=== PATIENT | male | born 1990 | race African-American/Black ===

== ENCOUNTER 2018-11-02 12:15 | Emergency (ER) | payer OTHER ==
[2018-11-02 12:34] VITALS: BP 124/72
--- NOTE | 2018-11-02 12:58 | ED ---
Throat Pain/Nasal Congestion - HPI Summary HPI Summary: 28 yr old male with the complaint of left eye irritation for about four days and getting worse with yellow drainage and crusting shut in the am. No history of grinding or recalling any FB inthe eye. No contact lens use. No cold or cough symptoms. 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 - History of Current Complaint Chief Complaint: UCEye Time Seen by Provider: 11/02/18 12:45 - Allergies/Home Medications Allergies/Adverse Reactions: Allergies Allergy/AdvReac Type Severity Reaction Status Date / Time No Known Allergies Allergy Verified 11/02/18 12:29 Home Medications: Home Medications Ibuprofen TAB* [Advil TAB*] 600 mg PO Q6H PRN 11/02/18 [History Confirmed ] PMH/Surg Hx/FS Hx/Imm Hx Infectious Disease History: No Infectious Disease History: Denies: Traveled Outside the [place] in Last 30 Days - Family History Known Family History: Positive: None - Social History Occupation: Employed Full-time Alcohol Use: Weekly Substance Use Type: Reports: None Smoking Status (MU): Never Smoked Tobacco Review of Systems Constitutional: Negative Positive: Drainage, Erythema. Negative: Photophobia, Blurred Vision, Diplopia All Other Systems Reviewed And Are Negative: Yes Physical Exam Triage Information Reviewed: Yes Vital Signs On Initial Exam: Initial Vitals Temp Pulse Resp BP Pulse Ox 98 F 82 14 124/72 100 11/02/18 12:30 11/02/18 12:30 11/02/18 12:30 11/02/18 12:30 11/02/18 12:30 Vital Signs Reviewed: Yes Appearance: Positive: Well-Appearing, No Pain Distress Skin: Positive: Warm, Skin Color Reflects Adequate Perfusion Head/Face: Positive: Normal Head/Face Inspection Eyes: Positive: EOMI, Conjunctiva Inflammed - bilateral with the left worse with mild chemosis to left side. ENT: Positive: Normal ENT inspection Neck: Positive: Nontender Respiratory/Lung Sounds: Positive: Clear to Auscultation, Breath Sounds Present Cardiovascular: Positive: RRR. Negative: Murmur Abdomen Description: Negative: Distended Musculoskeletal: Positive: Strength/ROM Intact Neurological: Positive: Sensory/Motor Intact, Alert, Oriented to Person Place, Time, CN Intact II-III, Normal Gait, Speech Normal Psychiatric: Positive: Normal Diagnostics - Vital Signs Vital Signs Temp Pulse Resp BP Pulse Ox 11/02/18 12:30 98 F 82 14 124/72 100 - Laboratory Lab Statement: Any lab studies that have been ordered have been reviewed, and results considered in the medical decision making process. EENT Course/Dx - Course Course Of Treatment: 28 yr old with conjunctivitis. Rx sulfa drops. - Diagnoses Provider Diagnoses: Conjunctivitis Discharge - Sign-Out/Discharge Documenting (check all that apply): Patient Departure All imaging exams completed and their final reports reviewed: No Studies - Discharge Plan Condition: Good Disposition: HOME Prescriptions: Sulfacetamide 10 % OPTH.VERONICA* [Sulamyd 10% Opth*] 1 drop BOTH EYES Q4H #1 btl Patient Education Materials: Conjunctivitis (ED) Referrals: No Primary Care Phys,NOPCP [Primary Care Provider] - [facility] [place] [facility] [Outside] - Billing Disposition and Condition Condition: GOOD Disposition: Home
== END 2018-11-02 12:58 | disposition home or self-care (01) ==
LOC: UCCORT 12:15
DX: H10.9 Unspecified conjunctivitis (principal)
CPT/HCPCS: 99202; G0463

== ENCOUNTER 2018-11-10 11:54 | Emergency (ER) | payer OTHER ==
--- NOTE | 2018-11-10 12:15 | ED ---
Throat Pain/Nasal Congestion - HPI Summary HPI Summary: 28 yr old with left eye irritation that persists for 9 days. The patient has not had as much discharge but still has some. The patient was put on sulfa eye drops with marginal improvement. Sent here by his work physical provider, Dr Ramos for clearance for his eye. - History of Current Complaint Time Seen by Provider: 11/10/18 12:03 - Allergies/Home Medications Allergies/Adverse Reactions: Allergies Allergy/AdvReac Type Severity Reaction Status Date / Time No Known Allergies Allergy Verified 11/10/18 12:17 PMH/Surg Hx/FS Hx/Imm Hx Infectious Disease History: Denies: Traveled Outside the [place] in Last 30 Days - Family History Known Family History: Positive: None - Social History Alcohol Use: Weekly Substance Use Type: Reports: None Smoking Status (MU): Never Smoked Tobacco Review of Systems Constitutional: Negative Positive: Drainage, Erythema All Other Systems Reviewed And Are Negative: Yes Physical Exam Triage Information Reviewed: Yes Vital Signs Reviewed: Yes Appearance: Positive: Well-Appearing, No Pain Distress Skin: Positive: Warm, Skin Color Reflects Adequate Perfusion Eyes: Positive: EOMI, VU, Conjunctiva Inflammed ENT: Positive: TMs normal Neck: Positive: Nontender Respiratory/Lung Sounds: Positive: Clear to Auscultation, Breath Sounds Present Cardiovascular: Positive: RRR. Negative: Murmur Abdomen Description: Negative: Distended Musculoskeletal: Positive: Strength/ROM Intact Neurological: Positive: Alert, Oriented to Person Place, Time Psychiatric: Positive: Normal EENT Course/Dx - Course Course Of Treatment: 28 yr old with persisitent conjunctival irriation. We do not have a slit lamp for examination here. At this point he should be seen by provider with slit lamp for further evaluation and exmination. He is going to [place] [facility] for Slit Lamp exam. - Diagnoses Provider Diagnoses: Conjunctivitis Discharge - Sign-Out/Discharge Documenting (check all that apply): Patient Departure All imaging exams completed and their final reports reviewed: No Studies - Discharge Plan Condition: Good Disposition: HOME-RECOMMEND TO ED Patient Education Materials: Eye Pain (ED) Referrals: No Primary Care Phys,NOPCP [Primary Care Provider] - [facility] [place] [facility] [[facility]] Deneen Koenig MD [Medical Doctor] - Additional Instructions: You need to go to the ER now for a slit lamp examination and further evaluation. - Billing Disposition and Condition Condition: GOOD Disposition: Home-Recommend to ED
[2018-11-10 12:16] VITALS: BP 121/79
== END 2018-11-10 12:41 | disposition home health service (06) ==
LOC: UCCORT 11:54
DX: H10.9 Unspecified conjunctivitis (principal)
CPT/HCPCS: 99212; G0463

== ENCOUNTER → 2019-06-24 13:07 | Emergency (ER) | payer SELFPAY | END | disposition home or self-care (01) | LOC: OHCORT 13:07 | DX: Z02.9 Encounter for administrative examinations, unspecified (principal) ==

== ENCOUNTER 2020-11-20 11:41 | Inpatient (IN) ==
[2020-11-20] MEDS ORDERED: NORMOSOL-R pH 7.4 1000 mL BAG 1,000 ML IV SCH ×2 (12:00→16:00)
[2020-11-20] MEDS ORDERED: NORMOSOL-R pH 7.4 1000 mL BAG 1,000 ML IV ONE ×3 (12:00→13:00)
[2020-11-20 12:16] LABS: Venous Bicarbonate HCO3 19.9 mmol/L (24-28)
[2020-11-20 12:21] LABS: ABS Eosinophils 0.1 10^3/ul (0-0.6); ABS Lymphocytes 2.7 10^3/ul (1.0-4.8); ABS Monocytes 0.6 10^3/ul (0-0.8); ABS Neutrophils 4.9 10^3/ul (1.5-7.7); Eosinophil % 1.2 %; Hematocrit 47 % (42-52); Hemoglobin 15.3 g/dL (14.0-18.0); Lymphocyte % 31.9 %; Mean Corpuscular HGB Conc 32 g/dL (31-36); Mean Corpuscular Hemoglobin 28 pg (27-31); Mean Corpuscular Volume 85 fL (80-94); Mean Platelet Volume 10.6 fL (7.4-10.4); Platelet Count 163 10^3/uL (150-450); Red Blood Count 5.56 10^6 /uL (4.18-5.48); Red Cell Distribution Width 13 % (10-15); White Blood Count 8.3 10^3/uL (3.5-10.8)
[2020-11-20] MEDS: Lactated Ringers 1000 ml BAG 1,000 ML IV ONE ×2 (12:27→13:59)
[2020-11-20 12:36] LABS: Albumin 4.1 g/dL (3.2-5.2); CO2 Carbon Dioxide 21 mmol/L (22-32); Calcium 8.7 mg/dL (8.6-10.3); Chloride 96 mmol/L (101-111); Sodium 131 mmol/L (135-145)
[2020-11-20 12:42] LABS: ALT 22 U/L (7-52); Albumin/Globulin Ratio 1.5 (1-3); Alkaline Phosphatase 87 U/L (35-149); Blood Urea Nitrogen 21 mg/dL (6-24); EGFR African American 79.3 (>60); EGFR Non-African American 65.6 (>60); Globulin 2.7 g/dL (2-4); Total Protein 6.8 g/dL (6.4-8.9)
[2020-11-20 12:45] LABS: Glucose 638 mg/dL (70-100); Glucose Confirmatory 638 mg/dL (70-100)
[2020-11-20 13:00] LABS: AST 20 U/L (13-39); Anion Gap 14 mmol/L (2-11); Potassium 3.7 mmol/L (3.5-5.0)
[2020-11-20] MEDS ORDERED: Insulin Infusion 100unit/100mL 100 UNIT/100 ML BAG IV ONE (13:06)
[2020-11-20 13:48] LABS: Magnesium 1.7 mg/dL (1.9-2.7); Phosphorus 2.7 mg/dL (2.5-5.0)
[2020-11-20] MEDS ORDERED: Piperacillin/Tazobac ADVAN 3.375 GM in NS 0.9% 100 ml BAG 100 ML IV ONE (13:54)
[2020-11-20] MEDS ORDERED: Iohexol 300 (CONTRAST) 10 ML SDV IV ONE (13:54)
[2020-11-20] MEDS: KCL 20 MEQ/100 ML IVPREMIX 20 MEQ/100 ML BAG IV SCH ×3 (13:57→21:39)
[2020-11-20 14:00] LABS: TSH Ultra Thyroid Stim Horm 0.61 mcIU/mL (0.34-5.60)
[2020-11-20 14:02] LABS: Free T4 1.14 ng/dL (0.61-1.12)
[2020-11-20] MEDS ORDERED: Magnesium Sulfate 2 gm BAG 2 GM/50 ML BAG IVPB ONE (14:05)
[2020-11-20 15:11] LABS: Urine Appearance Clear; Urine Bilirubin Negative (Negative); Urine Blood Negative (Negative); Urine Color Straw; Urine Glucose 3+(>=500 mg/dL) (Negative); Urine Ketones 1+ (Negative); Urine Nitrite Negative (Negative); Urine Protein Negative (Negative); Urine Specific Gravity 1.028 (1.002-1.030); Urine Urobilinogen Negative (Negative)
[2020-11-20] MEDS ORDERED: Iodixanol (CONTRAST) 320 MG/ML 100 ML SDV IV ONE (15:20)
[2020-11-20] MEDS ORDERED: Haloperidol 5 mg/ml SDV IV/IM 5 MG/ML AMP ONE (15:37)
[2020-11-20] MEDS ORDERED: Acetaminophen IV 1 GM/100ML 100 ML IV ONE (15:47)
[2020-11-20] MEDS ORDERED: Haloperidol 5 mg/ml SDV IV/IM 5 MG/ML AMP IV SLOW PU PRN (15:49)
[2020-11-20] MEDS ORDERED: Lorazepam PYXIS KEY ONE (15:58)
[2020-11-20] MEDS ORDERED: LORazepam 2 mg VIAL 1 ml ONE (15:59)
[2020-11-20] MEDS ORDERED: Acetaminophen IV 1 GM/100ML 1,000 MG/100 ML BAG IV ONE (16:15)
[2020-11-20] MEDS ORDERED: Lorazepam PYXIS KEY PRN ×2 (16:24→19:15)
[2020-11-20] MEDS ORDERED: LORazepam 2 mg VIAL 1 ml IV PUSH ONE (16:24)
[2020-11-20 16:28] LABS: Calcium 8.4 mg/dL (8.6-10.3); EGFR African American 79.3 (>60); EGFR Non-African American 65.6 (>60); Magnesium 2.5 mg/dL (1.9-2.7); Phosphorus 2.8 mg/dL (2.5-5.0)
[2020-11-20 16:40] LABS: Potassium 4.4 mmol/L (3.5-5.0)
[2020-11-20] MEDS ORDERED: Insulin Infusion 100unit/100mL 100 UNIT/100 ML BAG IV SCH (17:00)
[2020-11-20] MEDS: Azithromycin 500 mg/250 ml NS 500 MG/250 ML BAG IVPB SCH (17:22)
[2020-11-20 17:37] LABS: INR 1.01 (0.86-1.15)
[2020-11-20 18:37] LABS: Glucose Confirmatory 507 mg/dL (70-100); Troponin I 0.04 ng/mL (<0.03)
[2020-11-20] MEDS ORDERED: LORazepam 2 mg VIAL 1 ml IV PUSH PRN (19:15)
[2020-11-20 19:43] LABS: PCO2 Arterial 39 mmHg (35-45); PO2 Arterial 75 mmHg (80-100)
[2020-11-20] MEDS ORDERED: KCL 10 MEQ/50 ML IVPREMIX 10 MEQ/50 ML BAG IV ONE (20:15)
[2020-11-20] MEDS: cefTRIAXone 2 GM ADDV.VIAL 2 GM in NS 0.9% 100 ml BAG 100 ML IV SCH (20:32)
[2020-11-20 20:53] LABS: Troponin I 0.02 ng/mL (<0.03)
[2020-11-20 20:54] LABS: EGFR African American 156.6 (>60); EGFR Non-African American 129.4 (>60); Potassium 3.1 mmol/L (3.5-5.0)
[2020-11-20 21:02] LABS: Calcium 6.1 mg/dL (8.6-10.3)
[2020-11-20] MEDS: D5NS 0.9% 1000 ml BAG 1,000 ML IV SCH ×2 (21:02→21:07)
[2020-11-20] MEDS ORDERED: Insulin GLARGINE 100 un/ml 10 ml VIAL SUBCUT ONE (21:04)
[2020-11-20 21:16] LABS: Urine Benzodiazepine Screen None Detected (None Detect); Urine Cannabinoids Screen Presumptive Positive (None Detect); Urine Opiates Screen None Detected (None Detect)
[2020-11-20 21:59] LABS: Phosphorus 1.2 mg/dL (2.5-5.0)
[2020-11-20] MEDS ORDERED: Potassium Phosphate IV 15 MMOLE in NS 0.9% 250 ml 250 ML IVPB ONE (22:09)
[2020-11-20 23:26] LABS: Influenza A Molecular Negative (Negative); Influenza B Molecular Negative (Negative)
[2020-11-21] MEDS: KCL 20 MEQ/100 ML IVPREMIX 20 MEQ/100 ML BAG IV SCH (00:18)
[2020-11-21] MEDS ORDERED: Lactated Ringers 500 ml BAG 500 ML IV ONE (01:18)
[2020-11-21 02:36] LABS: Albumin 3.2 g/dL (3.2-5.2); CO2 Carbon Dioxide 23 mmol/L (22-32); Calcium 7.8 mg/dL (8.6-10.3); Chloride 111 mmol/L (101-111); Magnesium 2.2 mg/dL (1.9-2.7); Sodium 140 mmol/L (135-145)
[2020-11-21 02:42] LABS: ALT 16 U/L (7-52); Albumin/Globulin Ratio 1.6 (1-3); Alkaline Phosphatase 56 U/L (35-149); Blood Urea Nitrogen 13 mg/dL (6-24); EGFR African American 119.1 (>60); EGFR Non-African American 98.4 (>60); Glucose 148 mg/dL (70-100); Phosphorus 3.1 mg/dL (2.5-5.0); Total Protein 5.2 g/dL (6.4-8.9)
[2020-11-21 02:57] LABS: Anion Gap 6 mmol/L (2-11)
[2020-11-21] MEDS ORDERED: D5W NS IVFLUID 1000 ML IV SCH (04:00)
[2020-11-21 04:08] LABS: ABS Eosinophils 0.1 10^3/ul (0-0.6); ABS Lymphocytes 1.5 10^3/ul (1.0-4.8); ABS Monocytes 0.7 10^3/ul (0-0.8); ABS Neutrophils 4.6 10^3/ul (1.5-7.7); Eosinophil % 0.8 %; Hematocrit 38 % (42-52); Hemoglobin 12.3 g/dL (14.0-18.0); Lymphocyte % 21.3 %; Mean Corpuscular HGB Conc 33 g/dL (31-36); Mean Corpuscular Hemoglobin 28 pg (27-31); Mean Corpuscular Volume 84 fL (80-94); Mean Platelet Volume 10.1 fL (7.4-10.4); Platelet Count 129 10^3/uL (150-450); Red Blood Count 4.46 10^6 /uL (4.18-5.48); Red Cell Distribution Width 13 % (10-15); White Blood Count 6.9 10^3/uL (3.5-10.8)
[2020-11-21 04:36] LABS: Potassium Redraw 4.1 mmol/L (3.5-5.0)
[2020-11-21] MEDS ORDERED: Dextrose 50% Syringe 50 ml 25 GM/50 ML SYRINGE IV PUSH PRN (04:46)
[2020-11-21] MEDS ORDERED: D5NS 0.9% 1000 ml BAG 1,000 ML IV SCH ×3 (04:47→09:00)
[2020-11-21 05:58] LABS: ABS Eosinophils 0.1 10^3/ul (0-0.6); ABS Lymphocytes 1.7 10^3/ul (1.0-4.8); ABS Monocytes 0.6 10^3/ul (0-0.8); ABS Neutrophils 4.3 10^3/ul (1.5-7.7); Eosinophil % 0.9 %; Hematocrit 37 % (42-52); Hemoglobin 12.6 g/dL (14.0-18.0); Lymphocyte % 25.7 %; Mean Corpuscular HGB Conc 34 g/dL (31-36); Mean Corpuscular Hemoglobin 28 pg (27-31); Mean Corpuscular Volume 83 fL (80-94); Mean Platelet Volume 10.2 fL (7.4-10.4); Platelet Count 123 10^3/uL (150-450); Red Blood Count 4.52 10^6 /uL (4.18-5.48); Red Cell Distribution Width 13 % (10-15); White Blood Count 6.8 10^3/uL (3.5-10.8)
[2020-11-21 06:15] LABS: Calcium 7.8 mg/dL (8.6-10.3); EGFR African American 120.6 (>60); EGFR Non-African American 99.7 (>60); Magnesium 2.1 mg/dL (1.9-2.7); Phosphorus 3.1 mg/dL (2.5-5.0); Potassium 4.3 mmol/L (3.5-5.0)
[2020-11-21] MEDS ORDERED: Insulin GLARGINE 100 un/ml 10 ml VIAL SUBCUT ONE (08:13)
[2020-11-21 14:08] LABS: C Reactive Protein 3.91 mg/L (<8.01)
[2020-11-21] MEDS: Azithromycin 500 mg/250 ml NS 500 MG/250 ML BAG IVPB SCH (17:53)
[2020-11-21] MEDS: cefTRIAXone 2 GM ADDV.VIAL 2 GM in NS 0.9% 100 ml BAG 100 ML IV SCH (20:40)
[2020-11-21 21:53] LABS: Erythrocyte Sed Rate 4 mm/Hr (0-14)
[2020-11-22 08:21] LABS: ABS Eosinophils 0.1 10^3/ul (0-0.6); ABS Lymphocytes 1.8 10^3/ul (1.0-4.8); ABS Monocytes 0.5 10^3/ul (0-0.8); ABS Neutrophils 2.7 10^3/ul (1.5-7.7); Eosinophil % 2.1 %; Hematocrit 42 % (42-52); Hemoglobin 13.8 g/dL (14.0-18.0); Lymphocyte % 35.2 %; Mean Corpuscular HGB Conc 33 g/dL (31-36); Mean Corpuscular Hemoglobin 27 pg (27-31); Mean Corpuscular Volume 84 fL (80-94); Mean Platelet Volume 9.9 fL (7.4-10.4); Platelet Count 125 10^3/uL (150-450); Red Blood Count 5.05 10^6 /uL (4.18-5.48); Red Cell Distribution Width 13 % (10-15)
[2020-11-22 08:30] LABS: Calcium 8.7 mg/dL (8.6-10.3); EGFR African American 117.6 (>60); EGFR Non-African American 97.2 (>60); Potassium 3.5 mmol/L (3.5-5.0)
[2020-11-22] MEDS ORDERED: Insulin GLARGINE 100 un/ml 10 ml VIAL SUBCUT SCH (09:00)
[2020-11-22 14:14] VITALS: BP 136/94
[2020-11-22 23:26] LABS: Adenovirus Undetected (Undetected); Bordetella parapertussis Undetected (Undetected); Bordetella pertussis Undetected (Undetected); Chlamydophila pneumoniae Undetected (Undetected); Coronavirus 229E Undetected (Undetected); Coronavirus HKU1 Undetected (Undetected); Coronavirus NL63 Undetected (Undetected); Coronavirus OC43 Undetected (Undetected); Human Metapneumovirus Undetected (Undetected); Human Rhinovirus/Enterovirus Undetected (Undetected); Influenza A Undetected (Undetected); Influenza B Undetected (Undetected); Mycoplasmoides pneumoniae Undetected (Undetected); Parainfluenza Virus 1 Undetected (Undetected); Parainfluenza Virus 2 Undetected (Undetected); Parainfluenza Virus 3 Undetected (Undetected); Parainfluenza Virus 4 Undetected (Undetected); Respiratory Syncytial Virus Undetected (Undetected); Specimen Source NASOPHARYNGEAL SWAB
[2020-11-25 11:47] LABS: 7-amnioflunitrazepam LC-MS/MS Negative ng/mL (Cutoff: 10); Alpha OH Triazolam by LC-MS/MS Negative ng/mL (Cutoff: 10); Alpha-Hydroxyalprazolam LC-MS Negative ng/mL (Cutoff: 10); Alpha-OH Midazolam LC-MS/MS Negative ng/mL (Cutoff: 10); Alprazolam LC-MS/MS Negative ng/mL (Cutoff: 10); Benzodiazepines Interpretation Negative.; Chlordiazepoxide by LC-MS/MS Negative ng/mL (Cutoff: 10); Clobazam LC-MS/MS Negative ng/mL (Cutoff: 10); Lorazepam by LC-MS/MS Negative ng/mL (Cutoff: 10); Oxazepam by LC-MS/MS Negative ng/mL (Cutoff: 10); Prazepam by LC-MS/MS Negative ng/mL (Cutoff: 10); Temazepam by LC-MS/MS Negative ng/mL (Cutoff: 10); Triazolam by LC-MS/MS Negative ng/mL (Cutoff: 10); Zolpidem Phenyl-4-Carboxylic Negative ng/mL (Cutoff: 10); Zolpidem by LC-MS/MS Negative ng/mL (Cutoff: 10)
[2020-11-29 14:19] LABS: Zinc Transporter 8 (ZnT8) Ab <15.0 U/mL (<15.0)
== END 2020-11-22 14:18 | disposition home or self-care (01) | DRG 420 ==
LOC: ED 11:41 → ICU 14:07
PROVIDERS: ADMIT Internal Medicine; ATTEND Internal Medicine